=== PATIENT | female | born 1995 | race Caucasian/White ===

== ENCOUNTER 2018-10-13 17:24 | Emergency (ER) | payer BC, SELFPAY ==
[2018-10-13] VITALS (15 sets, daily range): BP systolic 143–145; BP diastolic 78–92; PULSE 78–127; RESP 0–27; TEMP 37.2; O2SAT 96–100
--- NOTE | 2018-10-13 17:36 | W.ED.GENAD ---
Discharge Plan Disposition Patient Disposition: HOME Condition: Stable Discharge Details Chief Complaint: Chest Pain Clinical Impression: Urticaria, Chest pain, Anxiety Primary Care Provider: None,None ED Provider: Mike Ríos Home Meds and New Rx's Prescriptions: New prednisone 20 mg tablet 60 mg PO DAILY Qty: 12 RF: 0 Discharge Instructions Instructions: Urticaria (ED), Anxiety (ED) Additional Instructions: try and get established with a primary care provider, I placed you on a follow up list to help with this if you have worsening shortness of breath, persistent vomit or high fevers return to the emergency department Medical Decision Making 22 yo female who denies chronic medical problems comes in with complaints of chest pain. She states earlier today she had sudden onset chest pain and rash without known trigger and [place] [facility] [place]/c'd after they did nothing. She was driving and again had right sided sharp chest pain and has what appears to be urticaria on the chest. Denies sob and pain is now resolved but still has urticaria. Denies known allergies, clear lungs no abdominal symptoms, she is very anxious on exam. Gien atypical symptoms and heart score of 0 do not feel eval indicated for acs. Wells low, hr over 130 so can't exclude PE, will obtain d dimer adn tx with steroids and h2 blockers and monitor. pt's rash resolved quickly, is now asymptomatic completely. Awaiting lab results labs unremarkable, HR in the 80's and rash and all symptoms resolved. I am going to start her on steroids for a few days. Advised f/u with pcp and return precautions given pt has no pcp, placed on f/u list to help get set up with someone within a few weeks Differential Diagnosis allergic reaction, mast cell degranulation, pe ECG Data Attestation: I personally reviewed and interpreted this ECG (s) as follows: Prior ECG tracings: not available for review Interpretation: sinus rhythm, rate of 106, pr 120, no acute st t wave ischemic findings HPI General Mode of arrival: wheelchair. Date/Time Provider Initiated Documentation: 10/13/18 17:26. Limitations to Documentation: no limitations. Information obtained by: patient. History of Present Illness 22 year old F presents to the emergency department with the chief complaint of chest pain and rash, described as moderate, and is localized to the chest. Patient reports no radiation. and it has been constant. No relieving factors improve symptom(s), No exacerbating factors reported . Patient did receive the following treatments prior to arrival, none Related Data Home Medications Medication Instructions Recorded Confirmed prednisone 60 mg PO DAILY #12 tab 10/13/18 Previous Rx's Medication Instructions Recorded prednisone 60 mg PO DAILY #12 tab 10/13/18 Allergies Allergy/AdvReac Type Severity Reaction Status Date / Time No Known Allergies Allergy Unverified 10/13/18 18:03 Review of Systems Review of Systems All systems reviewed & are unremarkable except as noted in HPI and below Constitutional Denies chills and Denies fever(s) ENT Denies change in voice Respiratory Denies cough Gastrointestinal Denies abdominal pain, Denies nausea and Denies vomiting Musculoskeletal Denies joint swelling PFS Social History Smoking/Tobacco Use Status: Current-Occasional Tobacco Type: cigarettes Smoking cigarettes per day: 0.5 Drug use: Never Substance use type: does not use Do you feel safe at home: Yes Do you feel safe in your relationship?: Yes Exam Const General: anxious Orientation: alert HENMT Head: normal to inspection Ears: external ears normal General nose exam: external nose normal Mouth: moist mucous membranes Eyes General: appearance normal, both eyes and all related structures Neck Neck: normal visual inspection Resp Effort & Inspection: normal respiratory effort and able to speak in complete sentences Cardio Jugular venous pressure: no JVD Rate: tachycardic Skin General skin exam: elasticity normal Neuro General: alert and oriented x3 Extrem General: normal to inspection
--- NOTE | 2018-10-13 17:41 | NUR.NOTE ---
pt presents with chest pain, SOB and numbness in her right arm.
--- NOTE | 2018-10-13 17:42 | ED.GENADUL_ITS ---
Discharge Plan Disposition Patient Disposition: HOME Condition: Stable Discharge Details Chief Complaint: Chest Pain Clinical Impression: Urticaria, Chest pain, Anxiety Primary Care Provider: None,None ED Provider: Mike Ríos Home Meds and New Rx's Prescriptions: New prednisone 20 mg tablet 60 mg PO DAILY Qty: 12 RF: 0 Discharge Instructions Instructions: Urticaria (ED), Anxiety (ED) Additional Instructions: try and get established with a primary care provider, I placed you on a follow up list to help with this if you have worsening shortness of breath, persistent vomit or high fevers return to the emergency department Medical Decision Making 22 yo female who denies chronic medical problems comes in with complaints of chest pain. She states earlier today she had sudden onset chest pain and rash without known trigger and [place] [facility] [place]/c'd after they did nothing. She was driving and again had right sided sharp chest pain and has what appears to be urticaria on the chest. Denies sob and pain is now resolved but still has urticaria. Denies known allergies, clear lungs no abdominal symptoms, she is very anxious on exam. Gien atypical symptoms and heart score of 0 do not feel eval indicated for acs. Wells low, hr over 130 so can't exclude PE, will obtain d dimer adn tx with steroids and h2 blockers and monitor. pt's rash resolved quickly, is now asymptomatic completely. Awaiting lab results labs unremarkable, HR in the 80's and rash and all symptoms resolved. I am going to start her on steroids for a few days. Advised f/u with pcp and return precautions given pt has no pcp, placed on f/u list to help get set up with someone within a few weeks Differential Diagnosis allergic reaction, mast cell degranulation, pe ECG Data Attestation: I personally reviewed and interpreted this ECG (s) as follows: Prior ECG tracings: not available for review Interpretation: sinus rhythm, rate of 106, pr 120, no acute st t wave ischemic findings HPI General Mode of arrival: wheelchair . Date/Time Provider Initiated Documentation: 10/13/18 17:26 . Limitations to Documentation: no limitations . Information obtained by: patient . History of Present Illness 22 year old F presents to the emergency department with the chief complaint of chest pain and rash, described as moderate, and is localized to the chest. Patient reports no radiation. and it has been constant. No relieving factors improve symptom(s), No exacerbating factors reported . Patient did receive the following treatments prior to arrival, none Related Data Home Medications Medication Instructions Recorded Confirmed prednisone 60 mg PO DAILY #12 tab 10/13/18 Previous Rx's Medication Instructions Recorded prednisone 60 mg PO DAILY #12 tab 10/13/18 Allergies Allergy/AdvReac Type Severity Reaction Status Date / Time No Known Allergies Allergy Unverified 10/13/18 18:03 Review of Systems Review of Systems All systems reviewed & are unremarkable except as noted in HPI and below Constitutional Denies chills and Denies fever(s) ENT Denies change in voice Respiratory Denies cough Gastrointestinal Denies abdominal pain, Denies nausea and Denies vomiting Musculoskeletal Denies joint swelling PFS Social History Smoking/Tobacco Use Status: Current-Occasional Tobacco Type: cigarettes Smoking cigarettes per day: 0.5 Drug use: Never Substance use type: does not use Do you feel safe at home: Yes Do you feel safe in your relationship?: Yes Exam Const General: anxious Orientation: alert HENMT Head: normal to inspection Ears: external ears normal General nose exam: external nose normal Mouth: moist mucous membranes Eyes General: appearance normal, both eyes and all related structures Neck Neck: normal visual inspection Resp Effort & Inspection: normal respiratory effort and able to speak in complete sentences Cardio Jugular venous pressure: no JVD Rate: tachycardic Skin General skin exam: elasticity normal Neuro General: alert and oriented x3 Extrem General: normal to inspection
[2018-10-13 17:59] LABS: Abs Immature Grans 0.02 k/cumm (0.0-0.09); Absolute Basophil Count 0.02 k/cumm (0.0-0.2); Absolute Eosinophil Count 0.08 k/cumm (0.0-0.7); Absolute Lymphocyte Count 3.01 k/cumm (1.2-3.4); Absolute Monocyte Count 0.75 k/cumm (0.11-0.7); Absolute Neutrophil Count 6.76 k/cumm (1.2-6.7); Basophils % 0.2; Eosinophils % 0.8; HCT 44.3 % (36.0-46.0); HGB 14.9 g/dL (12.0-15.5); Immature Grans % 0.2; Lymphocytes % 28.3; Mean Corp. HGB Concentration 33.6 g/dL (32.0-36.0); Mean Corpuscular Volume 92.1 fL (80-95); Mean Platelet Volume 9.6 fL (8.0-11.0); Neutrophils % 63.5; Platelet Count 323 x1000/uL (130-400); RBC 4.81 m/cumm (4.00-5.20); RBC Distribution Width 12.5 % (11.7-14.6); White Blood Cell Count 10.64 k/cumm (4.4-10.8)
[2018-10-13] MEDS: LORazepam 2 MG/ML VIAL 0.5 MG IVP (18:01)
[2018-10-13] MEDS: FAMOTIDINE 20 MG/50 ML BAG 200 MG IVPB (18:01)
[2018-10-13] MEDS: Normal Saline 1,000 ML 1000 ML IV (18:02)
[2018-10-13] MEDS: methylPREDNISolone SUCC 125 MG VIAL IVP (18:02)
[2018-10-13 18:15] LABS: ALT 18 U/L (12-78); AST 13 U/L (15-37); Albumin 4.3 g/dL (3.4-5.0); Alkaline Phosphatase 91 U/L (46-116); Anion Gap 10.2 mmol/L (3-11); BUN 14 mg/dL (7-18); Bilirubin, Total 0.4 mg/dL (0.2-1.0); CO2 26.8 mmol/L (21.0-32.0); CREATININE 0.91 mg/dL (0.55-1.02); Calcium 9.5 mg/dL (8.5-10.1); Chloride 102 mmol/L (98-107); Glucose 133 mg/dL (70-100); Potassium 3.8 mmol/L (3.5-5.1); Sodium 139 mmol/L (136-145)
[2018-10-13 18:18] LABS: HCG Qual (Serum) Negative
[2018-10-13 18:39] LABS: INR 0.9 (0.9-1.1); PTT Activated 22.3 sec (21.0-31.4)
[2018-10-13 18:54] LABS: D-Dimer 103 ng/mlFEU (<500)
--- NOTE | 2018-10-14 13:04 | CMPROGNOTE_ITS ---
Care Management Progress Note 10/14-Dr. Ríos requested assistance with a PCP (Janina) f/u in two weeks for anxiety, hives. Referral faxed to [facility] this am.
== END 2018-10-13 19:19 | disposition home or self-care (01) ==
LOC: ER 19:33
PROVIDERS: Emergency Provider Emergency Medicine
DX: L50.9 Urticaria, unspecified (principal); R07.9 Chest pain, unspecified; F41.9 Anxiety disorder, unspecified
CPT/HCPCS: 36415; 80053; 93005; 96361; 96365; 99284; 83735; 84703; 85025; 85379; 85610; 85730; 93010; J2060; J2930; J3490

== ENCOUNTER 2019-11-19 10:52 | Emergency (ER) | payer BC, SELFPAY ==
[2019-11-19 10:56] VITALS: BP 141/88; PULSE 73; RESP 16; TEMP 36.2; O2SAT 98
--- NOTE | 2019-11-19 11:04 | ED.GENADUL_ITS ---
Discharge Plan Disposition Patient Disposition: HOME Condition: Stable Discharge Details Chief Complaint: DentalOral Clinical Impression: Pain, dental Primary Care Provider: None,None ED Provider: Delia Chung Home Meds and New Rx's Prescriptions: New tramadol 50 mg tablet 50 mg PO Q8H PRN (Reason: pain) 3 Days Qty: 7 RF: 0 No Action clindamycin HCl 150 mg capsule 150 mg PO TID RF: 0 Discharge Instructions Instructions: Toothache (ED) Additional Instructions: Continue taking antibiotic as previously prescribed. You may take Tylenol alternating with the tramadol. Do not take any additional ibuprofen with tramadol. Take with food do not operate heavy machinery or drive while taking this medication. Follow up with primary care provider in 3-5 days. Return to ED sooner if any worsening or concerns. Increase oral fluids. You may also try [id number] Orajel. You do still need to follow-up with your dentist. Medical Decision Making 23-year-old female presents with left lower dental pain which began approximately 3 days ago. She was placed on clindamycin by dentist 2 days ago she reports decreased swelling but worsening pain. Denies ear pain, fever. She does state that the pain is severe enough that she cannot sleep. Patient given 50 mg tramadol p.o. and applied topical Hurricaine jelly on Q-tip to affected area. Will prescribe patient tramadol to go home with she states that she has an upcoming follow-up appointment within the next week with her dentist. Will instruct patient to continue taking clindamycin, take Tylenol or ibuprofen as needed and will add tramadol and will instruct patient on Orajel application. Patient discharged home with instructions. Instructed to follow-up with dentist as previously scheduled. This text was generated using [employer]ockation system, please disregard any oddities of phrase or misspellings. HPI General Mode of arrival: ambulatory . Date/Time Provider Initiated Documentation: 11/19/19 10:55 . Limitations to Documentation: no limitations . Information obtained by: patient . HPI Narrative: 23-year-old female presents with left lower dental pain which began approximately 3 days ago. She was placed on clindamycin by dentist 2 days ago she reports decreased swelling but worsening pain. Denies ear pain, fever. She does state that the pain is severe enough that she cannot sleep. Related Data Home Medications Medication Instructions Recorded Confirmed clindamycin HCl 150 mg PO TID 11/19/19 11/19/19 tramadol 50 mg PO Q8H PRN 3 Days #7 tab 11/19/19 Previous Rx's Medication Instructions Recorded tramadol 50 mg PO Q8H PRN 3 Days #7 tab 11/19/19 Allergies Allergy/AdvReac Type Severity Reaction Status Date / Time Penicillins Allergy Blisters Unverified 11/19/19 11:01 General Stated Complaint: DentalOral HAYDEE: 4 Review of Systems Narrative: Constitutional: Negative for weight loss, alert and oriented, well groomed, normal body habitus, appears comfortable. HEENT: Denies trauma, headaches, blurry vision, nasal discharge, sore throat, trouble swallowing. Positive left lower dental pain Chest: Denies chest pain, palpitations, irregular rhythm, hypertension. Respiratory: Denies Shortness of breath, cough, hemoptysis. GI: Denies abdominal pain, nausea, vomiting, diarrhea, constipation. : Denies dysuria, hematuria, flank pain, rectal bleeding. Neuro: Denies dizziness, blurry vision, weakness, syncope, headache or facial numbness. Hematologic: Denies easy bruising, intolerance to heat or cold, hair loss. [facility] Social History Smoking/Tobacco Use Status: Former Tobacco Use Drug use: Never Substance use type: does not use Do you feel safe at home: Yes Do you feel safe in your relationship?: Yes Exam Narrative Exam Narrative: Constitutional: Alert and oriented x3. Appears stated age. Normal body habitus. Head: Normocephalic, no trauma. Eyes: Pupils PERRLA, Red reflex noted, EOM's intact. Eyelids symmetrical without lesions, discharge, or swelling. ENT: Bilateral TM's WNL, External ear normal to inspection, no mastoid TTP, swelling, or erythema, Nasal turbinates WNL, no nasal discharge. Dental caries noted to #19 left lower molar. Slight gingival swelling surrounding tooth. No abscess no area of fluctuance., Posterior pharynx WNL, no exudate. No anterior cervical lymphadenopathy. Chest: RRR, Normal S1, S2, distal pulses intact. Resp: Lungs clear to auscultation bilaterally, no wheezes, rales, or rhonchi. Musculoskeletal: Normal gait, 5/5 strength to all four extremities. Skin: No suspicious rashes or lesions. Capillary refill less than 2 sec. Neurologic: Cranial nerves II-XII intact. Alert and oriented x 3. DTR's intact. Hematologic/Lymphatic: No ecchymosis, no lymphadenopathy. Course Vital Signs Vital signs: Vital Signs Temperature 36.2 C L 11/19/19 10:56 Pulse 73 11/19/19 10:56 Respiratory Rate 16 11/19/19 10:56 Blood Pressure 141/88 H 11/19/19 10:56 Pulse Oximetry 98 11/19/19 10:56 Temperature 36.2 C L 11/19/19 10:56 Temperature Source Temporal Artery Scan 11/19/19 10:56 Pulse 73 11/19/19 10:56 Respiratory Rate 16 11/19/19 10:56 Respiratory Effort Non-Labored 11/19/19 11:00 Blood Pressure 141/88 H 11/19/19 10:56 Blood Pressure Position Sitting 11/19/19 10:56 Pulse Oximetry 98 11/19/19 10:56 Oxygen Delivery Method Room Air 11/19/19 10:56 Oxygen Flow Rate 0 11/19/19 10:56 Pain Level 9 11/19/19 10:56
[2019-11-19] MEDS: traMADol 50 MG TAB PO (11:09)
== END 2019-11-19 11:30 | disposition home or self-care (01) ==
PROVIDERS: Emergency Provider Registered Nurse Emergency
DX: R68.84 Jaw pain (principal)
CPT/HCPCS: 99283